=== PATIENT | female | born 1960 | race Caucasian/White ===

== ENCOUNTER 2017-05-17 11:44 | Inpatient (IN) | payer OTHER ==
[~2017-05-17] VITALS: Ht 158.8 cm; Wt 96.9 kg
[2017-05-17] MEDS ORDERED: ATEN25TA PO (12:35)
[2017-05-17] MEDS ORDERED: TRAZ100T15 PO (12:35)
[2017-05-17] MEDS ORDERED: HYDR20TA22 PO (12:35)
[2017-05-17] MEDS ORDERED: TRAM-28 PO (12:36)
[2017-05-17] MEDS ORDERED: SODIUM CHLORIDE 0.9% 1,000 ML IV ONE (12:55)
[2017-05-17] MEDS ORDERED: SODIUM CHLORIDE FLUSH 10ML SYR IVF ONE (13:00)
[2017-05-17 14:17] LABS: DAU SCREEN DISCLAIMER
[2017-05-17 14:17] LABS: ASPARTATE AMINO TRANSFERASE 41 U/L (15-37); BLOOD UREA NITROGEN 11 mg/dL (7-18)
[2017-05-17 15:10] LABS: IS PT STATUS REG ER OR PRE ER? YES
[2017-05-17] MEDS ORDERED: D5%-0.45% NACL 1,000 ML IV SCH ×2 (15:17→16:15)
[2017-05-17] MEDS ORDERED: CEFTRIAXONE PMX 1GM/50ML 50 ML IV ONE (15:30)
[2017-05-17] MEDS ORDERED: ONDANSETRON 2MG/ML, 2ML IVPush PRN (16:30)
[2017-05-17] MEDS ORDERED: hydrALAzine 20 MG/ML, 1ML IVPush PRN (16:30)
[2017-05-17] MEDS ORDERED: DOCUSATE 100 MG CAPSULE PO PRN (16:30)
[2017-05-17] MEDS ORDERED: POLYETHYLENE GLYCOL 17 GM PACKET PO PRN (16:30)
[2017-05-17] MEDS ORDERED: ACETAMINOPHEN 325 MG TABLET PO PRN (16:30)
[2017-05-17] MEDS ORDERED: BISACODYL 10 MG SUPP PR PRN (16:30)
[2017-05-17] MEDS ORDERED: ENALAPRILAT 1.25 MG/ML, 2ML IVPush PRN (16:30)
[2017-05-17] MEDS ORDERED: WARF5TAB PO (16:35)
[2017-05-17 18:29] VITALS: BP 159/89
[2017-05-17] MEDS ORDERED: DEXTROSE 50%, 50ML SYRINGE ONE (19:44)
[2017-05-17] MEDS ORDERED: DEXTROSE 50%, 50ML VIAL IVPush ONE (21:00)
[2017-05-17] MEDS ORDERED: ATENOLOL 50 MG TABLET PO SCH (21:00)
[2017-05-17] MEDS: CEFTRIAXONE PMX 1GM/50ML 50 ML IV SCH (22:46)
[2017-05-17 22:58] VITALS: BP 124/79
[2017-05-17 23:35] LABS: IS PT STATUS REG ER OR PRE ER? NO
[2017-05-18 02:37] VITALS: BP 137/84
[2017-05-18 05:36] LABS: BLOOD UREA NITROGEN 10 mg/dL (7-18)
[2017-05-18 05:39] LABS: ABG COLLECTION SITE RIGHT RADIAL; COLLATERAL CIRCULATION TESTING NORMAL
[2017-05-18 05:45] LABS: IS PT STATUS REG ER OR PRE ER? NO
[2017-05-18 07:06] VITALS: BP 130/84
[2017-05-18] MEDS ORDERED: MAGNESIUM SULFATE PMX 2GM/50ML 50 ML IV ONE (08:00)
[2017-05-18] MEDS ORDERED: REGADENOSON 0.4 MG/5 ML SYRINGE ONE (08:18)
[2017-05-18] MEDS: CEFTRIAXONE PMX 1GM/50ML 50 ML IV SCH ×2 (10:29→23:07)
[2017-05-18] MEDS ORDERED: FENTANYL PF 100 MCG/2ML ONE (11:08)
[2017-05-18] MEDS ORDERED: FLUMAZENIL 0.1 MG/1 ML, 5ML ONE (11:08)
[2017-05-18] MEDS ORDERED: MIDAZOLAM 1 MG/ML, 5ML ONE (11:08)
[2017-05-18 12:45] VITALS: BP 153/97
[2017-05-18] MEDS: HYDROXYCHLOROQUINE 200 MG TABLET PO SCH (13:29)
[2017-05-18] MEDS: LEVETIRACETAM 500 MG TABLET PO SCH (13:29)
[2017-05-18] MEDS ORDERED: GADOBUTROL 10 MMOL/10 ML PFS ONE (14:17)
[2017-05-18 17:30] VITALS: BP_SYST 168; BP_SYST 177; BP_SYST 190; BP_DIAS 110; BP_DIAS 127; BP_DIAS 128
[2017-05-18 17:45] VITALS: BP 153/107
[2017-05-18 19:00] VITALS: BP 131/87
[2017-05-19 05:21] VITALS: BP_SYST 144; BP_SYST 159; BP_DIAS 102; BP_DIAS 106
[2017-05-19] MEDS ORDERED: AMLO5TAB2 PO (07:20)
[2017-05-19] MEDS ORDERED: CEFD300C37 PO (07:20)
[2017-05-19 07:58] VITALS: BP 138/91
[2017-05-19] MEDS ORDERED: AMLODIPINE 5 MG TABLET PO SCH (09:00)
[2017-05-19] MEDS: LEVETIRACETAM 500 MG TABLET PO SCH (09:01)
[2017-05-19] MEDS: HYDROXYCHLOROQUINE 200 MG TABLET PO SCH (09:01)
[2017-05-19] MEDS ORDERED: HYDR200T PO (09:47)
[2017-05-19] MEDS: CEFTRIAXONE PMX 1GM/50ML 50 ML IV SCH (11:00)
[2017-05-19] MEDS ORDERED: WARFARIN 2.5 MG TABLET PO-COUM ONE (18:00)
== END 2017-05-19 12:15 | disposition home health service (06) | DRG 280 ==
LOC: ED 14:26 → SUATTDRO 15:45 → EDIP 15:51 → 5SO 18:14 → DCLOUNGE 05-19 11:35
PROC: 02HV33Z Insertion of Infusion Device into Superior Vena Cava, Percutaneous Approach (ICD-10-PCS; principal; 2017-05-17)
PROC: B548ZZA Ultrasonography of Superior Vena Cava, Guidance (ICD-10-PCS; 2017-05-17)
DX: I21.4 Non-ST elevation (NSTEMI) myocardial infarction (principal); G93.40 Encephalopathy, unspecified; F07.81 Postconcussional syndrome; G20 Parkinson's disease; M54.5 Low back pain; G25.81 Restless legs syndrome; G40.909 Epilepsy, unspecified, not intractable, without status epilepticus; G89.29 Other chronic pain; I10 Essential (primary) hypertension; N30.90 Cystitis, unspecified without hematuria; Z79.01 Long term (current) use of anticoagulants; Z85.3 Personal history of malignant neoplasm of breast; Z86.718 Personal history of other venous thrombosis and embolism; Z88.5 Allergy status to narcotic agent; Z91.041 Radiographic dye allergy status; Z90.12 Acquired absence of left breast and nipple; Z90.49 Acquired absence of other specified parts of digestive tract; Z90.89 Acquired absence of other organs; Z92.21 Personal history of antineoplastic chemotherapy
CPT/HCPCS: 36415; 36569; 36600; 70450; 70551; 70552; 72156; 76937; 77001; 78452; 80048; 80053; 80061; 80307; 81001; 82140; 82533; 82607; 82746; 82803; 82947; 82962; 83735; 84443; 84484; 85025; 85610; 87077; 87086; 87186; 93005; 93017; 93306; 99156; 99285; A9585; J0696; J2250; J2785; J3010; A9502; C1751; C9898; J3475

== ENCOUNTER 2017-06-25 13:18 | Emergency (ER) | payer OTHER ==
[~2017-06-25] VITALS: Ht 157.5 cm; Wt 86.5 kg
[~2017-06-25 13:18] MED LIST: AMLO5TAB2 PO; ATEN25TA PO; CEFD300C37 PO; HYDR200T PO; HYDR20TA22 PO; TRAM-47 PO; TRAZ100T15 PO; WARF5TAB PO
[2017-06-25] MEDS ORDERED: OXYcodone/APAP 5/325MG TABLET ONE (14:50)
[2017-06-25] MEDS ORDERED: ONDANSETRON ODT 4 MG ONE (14:51)
[2017-06-25] MEDS ORDERED: ONDANSETRON ODT 4 MG PO ONE (15:00)
[2017-06-25] MEDS ORDERED: OXYcodone/APAP 5/325MG TABLET PO ONE (15:00)
[2017-06-25 15:02] LABS: PATH.CAST-FLAG NOT PRESENT; SPERM-FLAG NOT PRESENT; SRC-FLAG NOT PRESENT; XTAL-FLAG NOT PRESENT; YLC-FLAG NOT PRESENT
[2017-06-25 16:12] VITALS: BP 140/76
== END 2017-06-25 17:52 | disposition home or self-care (01) ==
LOC: ED 16:51
DX: S29.011A Strain of muscle and tendon of front wall of thorax, initial encounter (principal); S80.02XA Contusion of left knee, initial encounter; I10 Essential (primary) hypertension; G20 Parkinson's disease; W18.39XA Other fall on same level, initial encounter; Y93.89 Activity, other specified; Y92.89 Other specified places as the place of occurrence of the external cause; Y99.8 Other external cause status
CPT/HCPCS: 71250; 73564; 81001; 87086; 93005; 99285; Q0162